=== PATIENT | female | born 1960 | race Caucasian/White ===

== ENCOUNTER 2018-04-21 19:22 | Emergency (ER) | payer MEDICAID ==
[~2018-04-21] VITALS: Ht 172.7 cm; Wt 72.6 kg
[~2018-04-21 19:22] MED LIST: CEPHALEXIN500 MG PO; IBUPROFEN400 MG PO; TYLENOL325 MG PO; ULTRAM50 MG PO
== END 2018-04-21 21:22 | disposition home or self-care (01) ==
LOC: ED 19:22
PROC: 2W3FX1Z Immobilization of Left Hand using Splint (ICD-10-PCS; principal; 2018-04-21)
DX: S62.002A Unspecified fracture of navicular [scaphoid] bone of left wrist, initial encounter for closed fracture (principal); W01.0XXA Fall on same level from slipping, tripping and stumbling without subsequent striking against object, initial encounter
CPT/HCPCS: 29125; 73110; 99283